=== PATIENT | female | born 1990 | race American Indian/Alaskan Native ===

== ENCOUNTER 2019-11-29 09:20 | Inpatient (IN) | payer OTHER ==
[2019-11-29 10:24] LABS: BASO % 0.4 % (0-2.0); EOS % 0.4 % (0-4.5); HEMATOCRIT 32.8 % (32.4-45.2); HEMOGLOBIN 11.1 GM/dL (10.7-15.3); LYMPH % 20.4 % (8-40); MCH 30.3 pg (25.7-33.7); MCHC 33.7 g/dl (32.0-36.0); MEAN CELL VOLUME 89.8 fl (80-96); MEAN PLT VOLUME 7.7 fl (7.5-11.1); MONO % 11.6 % (3.8-10.2); NEUT % 67.2 % (42.8-82.8); PLATELET COUNT 250 K/MM3 (134-434); RBC 3.66 M/mm3 (3.60-5.2); RDW 16.1 % (11.6-15.6); WHITE BLOOD COUNT 6.4 K/mm3 (4.0-10.0)
[2019-11-29 10:30] LABS: INR 0.91 (0.83-1.09); PROTHROMBIN TIME (PATIENT) 10.7 SEC (9.7-13.0)
[2019-11-29 10:32] LABS: ACTIVATED PTT 24.7 SECONDS (25.2-36.5)
[2019-11-29] MEDS ORDERED: DINOPROSTONE 10 MG VAGINAL SUPPOSITORY VG ONE (10:45)
[2019-11-29 10:49] LABS: BLOOD UREA NITROGEN 6.5 mg/dL (7-18); CALCIUM 9.2 mg/dL (8.5-10.1); CREATININE 0.4 mg/dL (0.55-1.3); POTASSIUM 3.8 mmol/L (3.5-5.1)
[2019-11-29] MEDS ORDERED: BUTORPHANOL TARTRATE 1 MG/ML VIAL IVPB ONE (10:59)
[2019-11-29] MEDS ORDERED: PROMETHAZINE HCL 25 MG/1 ML VIAL IVPB ONE ×2 (10:59→19:15)
[2019-11-29] MEDS ORDERED: DEXTROSE 5%-LACTATED RINGERS 1,000 ML IV SCH (11:00)
[2019-11-29] MEDS ORDERED: SODIUM PHOSPHATE/NA BIPHOS 133 ML ENEMA RC ONE (11:02)
--- NOTE | 2019-11-29 11:17 | HP ---
Past Medical History - Primary Care Physician PCP:: Claire Newton - Admission Chief Complaint: 28 yrs , 40.3/7 weeks iup, admitted for induction of labor History of Present Illness: pt late registrant at [facility] .care transferred from [place] 04/03/19 Panel :B Pos, hbsag neg, hep c nr, rubella immune, sickle neg, gc/ct neg , hiv neg h/h 10.07/10, Afp neg , 1 hr gtt 88 10/14/19 US : sliup. 33.6/7 wks, , Vx, normal AF, edc 11/26/19 h/o covid -Pos on 07/31/19, 6 weeks later covid neg 36 weeks cultures on 11/05/19 : h/h 9.6/28.6,plt 299, GBS neg, gc/ct neg , Hiv neg, quantiferon neg h/o 11/21/19 us done at [facility] History Source: Patient, Medical Record Limitations to Obtaining History: No Limitations - Past Medical History Cardiovascular: No: AFIB, HTN, Murmur Pulmonary: No: Asthma Gastrointestinal: No: Ascites, Cancer, Constipation, Crohn's Disease, Diverticulitis, Diverticulosis, Esophageal Varices, Gastritis, GERD, GI Bleed, Hemorrhoids, Hiatal Hernia, Inflamatory Bowel Disease, Irritable Bowel Disease, Pancreatitis, Peptic Ulcer Disease, Ulcerative Colitis, Other Hepatobiliary: No: Hepatitis B, Hepatitis C Renal/: No: UTI ...: 2 ...Para: 1 (03/12/20 6'3"in [place] ) ...LMP: 02/08/19 ... Weeks Gestation by Dates: 42 ...EDC by Dates: 11/15/19 ...EDC by Sono: 11/26/19 (09/16/19 us 29.6 wkks --edc 11/26/19, 40.3 wks by us ) Heme/Onc: Yes: Anemia (iron deff anemia rx po pnv & iron) Infectious Disease: Yes: Other (h/o covid pos on 07/31/19. 6 wks later neg. 11/26/19 covid test neg). No: AIDS, HIV, STD's Psych: No: Addictions, Anxiety, Bipolar, Depression, Panic, Psychosis, Schizophrenia, Other - Past Surgical History Past Surgical History: Yes: None Hx Myomectomy: No Hx Transabdominal Cerclage: No Home Medications - Allergies Allergies/Adverse Reactions: Allergies Allergy/AdvReac Type Severity Reaction Status Date / Time No Known Allergies Allergy Verified 11/29/19 10:57 Review of Systems - Review of Systems Constitutional: reports: No Symptoms Eyes: reports: No Symptoms HENT: reports: No Symptoms Neck: reports: No Symptoms Cardiovascular: reports: No Symptoms Gastrointestinal: reports: No Symptoms Genitourinary: reports: No Symptoms Breasts: reports: No Symptoms Reported Musculoskeletal: reports: No Symptoms Integumentary: reports: No Symptoms Neurological: reports: No Symptoms Endocrine: reports: No Symptoms Hematology/Lymphatic: reports: No Symptoms Psychiatric: reports: No Symptoms Physical Exam - Maternity Constitutional: Yes: Well Nourished Eyes: Yes: WNL HENT: Yes: WNL Neck: Yes: WNL Cardiovascular: Yes: WNL Lungs: Clear to auscultation Breast(s): Yes: WNL - Abdominal Exam/OB Fundal Height: 38 Number of Fetuses: Single Presentation: Vertex Contractions: No Heart Rate (range): 130 Heart Rate Location: [facility] Category: I Accelerations: Non-Uniform Decelerations: None - Vaginal Exam/OB Vaginal Bleeding: No Speculum Exam: No Dilatation (cm): close Effacement (%): unefface Presentation: Vertex/Position (exam at 10.45 AM) Station: -3 - Physical Exam Edema: LLE: 1+, RLE: 1+ Integumentary: Yes: WNL Deep Tendon Reflex Grade: Normal +2 ...Motor Strength: WNL Psychiatric: Yes: WNL, Alert, Oriented - Labs Lab Results: CBC, BMP 11/29/19 10:01 11/29/19 10:01 Laboratory Tests 11/26/19 11:20 COVID-19 (JOHN) Not detected Laboratory Tests 11/29/19 10:01 PT with INR 10.70 INR 0.91 PTT (Actin FS) 24.7 L Hemorrhage Risk Assessment - Risk Factors Risk Score: 0 Risk Level: Low Risk Problem List - Problems (1) Post term over 40 weeks Code(s): O48.0 - POST-TERM (2) Encounter for induction of labor Code(s): Z34.90 - ENCNTR FOR SUPRVSN OF NORMAL , UNSP, UNSP TRIMESTER Assessment/Plan 28 yrs , 40 .3 weeks, gbs neg , is admitted for induction of labor 10.45 AM Cervidil inserted Plan trial vaginal delivery
[2019-11-29 15:21] VITALS: BMI 24.1
--- NOTE | 2019-11-29 17:35 | PN ---
Progress Note (short form) - Note Progress Note: pt c/o uc .q 1-2-3 min . pt feels fhr 130-140 reactive pelvic ex; cx 2cm/post/soft/50%/Mi vx -[address] cervidil. stadol + phenrgan PRN Selected Entries 11/29/19 15:30 Temperature 98.3 F Pulse Rate 78 Blood Pressure 108/65 Problem List - Problems (1) Post term over 40 weeks Code(s): O48.0 - POST-TERM (2) Encounter for induction of labor Code(s): Z34.90 - ENCNTR FOR SUPRVSN OF NORMAL , UNSP, UNSP TRIMESTER
--- OUTSIDE RECORDS SUMMARY | 2019-11-29 18:45 | XMS ---
:1990 Author Organization [facility] Support Name Relationship Address Phone UE, UNEMPLOYED Unavailable Unavailable Unavailable UE Unavailable Unavailable Unavailable SHEREEN SAENZ AUNT [address] [place] [address] Re-disclosure Warning The records that you are about to access may contain information from federally- assisted alcohol or drug abuse programs. If such information is present, then the following federally mandated warning applies: This information has been disclosed to you from records protected by federal confidentiality rules (42 CFR part 2). The federal rules prohibit you from making any further disclosure of this information unless further disclosure is expressly permitted by the written consent of the person to whom it pertains or as otherwise permitted by 42 CFR part 2. A general authorization for the release of medical or other information is NOT sufficient for this purpose. The Federal rules restrict any use of the information to criminally investigate or prosecute any alcohol or drug abuse patient.The records that you are about to access may contain highly sensitive health information, the redisclosure of which is protected by Article 27-F of the [facility] Public Health law. If you continue you may haveaccess to information: Regarding HIV / AIDS; Provided by facilities licensed or operated by the [facility] Office of Mental Health; or Provided by the [facility] Office for People With Developmental Disabilities. If such information is present, then the following [facility] mandated warning applies: This information has been disclosed to you from confidential records which are protected by state law. State law prohibits you from making any further disclosure of this information without the specific written consent of the person to whom it pertains, or as otherwise permitted by law. Any unauthorized further disclosure in violation of state law may result in a fine or detention sentence or both. A general authorization for the release of medical or other information is NOT sufficient authorization for further disclosure. Insurance Providers Payer name Policy type Policy ID Covered Covered green party's Policy P bennett / Coverage green party ID relationship to Know[employer] Inf ormation type knowles [employer] [id number] SP [id number] Results ID Date Data Source [id number] 11/26/2019 11:20:00 AM EDT [facility] Name Value Range Interpretation Description Data Sup porting Code Source(s) Document(s ) SARS [facility] coronavirus 2 RNA This lab was ordered by [facility] and reported by [facility]. ID Date Data Source [id number] 03/12/1799 11:59:58 PM -04:56:02 [facility] Name Value Range Interpretation Code Description Data Ivanna rce(s) Supporting Document(s ) SARS-COV-2 [facility]P [facility]ostics QL JOHN+PROBE This lab was ordered by [facility] and reported by [facility]. Procedure
[2019-11-29] MEDS ORDERED: BUTORPHANOL TARTRATE 2 MG/ML VIAL IVPB ONE (19:15)
[2019-11-29] MEDS ORDERED: BUTORPHANOL TARTRATE 2 MG/ML VIAL ONE (19:16)
[2019-11-29] MEDS ORDERED: PROMETHAZINE HCL 25 MG/1 ML VIAL ONE (19:16)
--- NOTE | 2019-11-29 20:27 | PN ---
Progress Note (short form) - Note Progress Note: 6.30 PM pt c/o pain , requesting pain meds o/e pelvic 3cm/60 %soft , midpose vx-3 UC 1-2-3 min, FHR 130 cat-1 plan : [id number] + phenrgan 25 mg iv stat at 7.25 PM given. 8.15 PM cx 7cm/90%/mi vx -1 uc 1-2 min, fhr 130, sometimes ? variable small decel noted , cat-1 pt drowsy , uncomfortable during uc Selected Entries 11/29/19 11/29/19 18:00 19:00 Temperature 98.1 F Pulse Rate 83 80 Blood Pressure 114/63 Blood Pressure 90 Mean 9.45 PM SROM, light meconium cervidil expelled cx 8-9 cm /100%/vx 0station . FHR 90-120 variable decel, cat-2 UC 2 min 10.00PM cx 10/100/+1/+2 . fhr 90-110 cat-2 , uc 2 min pt pushing Selected Entries 11/29/19 20:00 Pulse Rate 68 Blood Pressure 120/77 Problem List - Problems (1) Post term over 40 weeks Code(s): O48.0 - POST-TERM (2) Encounter for induction of labor Code(s): Z34.90 - ENCNTR FOR SUPRVSN OF NORMAL , UNSP, UNSP TRIMESTER
[2019-11-29] MEDS ORDERED: OXYTOCIN 20 UNITS in 0.9% NS 20 UNIT/1,000 ML INFUS.BAG IV ONE ×2 (20:32→23:31)
[2019-11-29] MEDS ORDERED: LIDOCAINE HCL 1% PRESERVATIVE FREE - 30ML VIAL ONE (22:08)
[2019-11-29] MEDS ORDERED: WITCH HAZEL 50% (TUCKS) 40 PAD/JAR PAD TP PRN (23:16)
[2019-11-29] MEDS ORDERED: BENZOCAINE 28 GM HEMORRHOIDAL OINTMENT TP PRN (23:16)
[2019-11-29] MEDS ORDERED: METHYLERGONOVINE MALEATE 0.2 MG/1 ML AMP IM PRN (23:16)
[2019-11-29] MEDS ORDERED: BENZOCAINE 20% 57 GM BOTTLE TP PRN (23:16)
[2019-11-29] MEDS ORDERED: BISACODYL 10 MG SUPP.RECT RC PRN (23:16)
[2019-11-29] MEDS ORDERED: IBUPROFEN 600 MG TABLET (FP) PO ONE (23:28)
[2019-11-29] MEDS ORDERED: ACETAMINOPHEN 325 MG TABLET (FP) ONE (23:28)
[2019-11-29] MEDS ORDERED: OXYTOCIN 20 UNITS in 0.9% NS 20 UNIT/1,000 ML INFUS.BAG IV SCH (23:30)
[2019-11-29] MEDS: IBUPROFEN 600 MG TABLET (FP) PO PRN (23:30)
[2019-11-29] MEDS: ACETAMINOPHEN 325 MG TABLET (FP) PO PRN (23:30)
--- NOTE | 2019-11-29 23:31 | PN ---
Delivery - Delivery Vaginal Delivery: No Problems, Spontaneous (pt delievered, vx presentation, gene position, cord around neckx1 , untangled before delivery of shoulder, oral & nasal suction done at perineum . trivascular cord, cord segment cut for cord gas , cord blood collected. Median episiotomy sutured inlayers with chr catgut #2/0 under local anesthesia.bladder catheterized , emptied 250 ml urine. [place] ex : mucosa & sphincter intact) Type of Anesthesia: Local Episiotomy/Laceration: Midline EBL (cc): 400 Delivery, Single - Stages of Labor Date 1st Stage Initiatied: 11/29/19 Time 1st Stage Initiated: 17:00 Date 2nd Stage Initiated: 11/29/19 Time 2nd Stage Initiated: 22:00 Date of Delivery: 11/29/19 Time of Delivery: 22:26 Date Placenta Delivered: 11/29/19 Time Placenta Delivered: 22:28 Placenta: Yes: Spontaneous, Uterine Exploration - Condition of Infant Gender: Female Weight: 8 lb 6 oz Position: Left (cord around neckx1), OA Total Hours ROM (Hrs/Mins): 43 min - 1 Minute Total Score: 9 5 Minutes Total Score: 9 - [place] Feeding Plan Initial Plan: Exclusive throughout hospitalization Remarks - Remarks Remarks: 28 yrs , gbs neg , 40.3 weeks admitted for induction of labor pnc at [address] [place] [address] cervidil insertion intrapartum stadol+ phenrgan labor analgesia given one dose intrapartum course uneventful
[2019-11-29 23:45] LABS: CORD BASE EXCESS -11.9 mmol/L (0-2); CORD HCO3 17.8 mmHg (20-29); CORD PCO2 54.6 mmHg (30-78); CORD pH 7.13 (7.14-7.44)
[2019-11-29 23:46] LABS: CORD BASE EXCESS -10.1 mmol/L (0-2); CORD HCO3 16.9 mmHg (20-29); CORD PCO2 41.4 mmHg (30-78); CORD pH 7.23 (7.14-7.44)
--- NOTE | 2019-11-30 08:47 | PN ---
Post Progress Note - Subjective Subjective: c/o bleeding moderate cramps Post Day: 1 Type of Delivery: Vital Signs: Vital Signs Temperature 98.1 F 11/30/19 06:00 Pulse Rate 77 11/30/19 06:00 Respiratory Rate 20 11/30/19 06:00 Blood Pressure 99/55 L 11/30/19 06:00 O2 Sat by Pulse Oximetry (%) 100 11/29/19 23:45 Breast Exam: Yes: Soft, Other (attempts tp brast feed ). No: Engorged Uterus: Yes: Fundus Firm, Fundus below umbilicus, Non-tender Abdomen/GI: Yes: Abdomen soft Lochia, amount: Moderate Extremities: Yes: Calves non-tender Perineum: Yes: Episiotomy (no c/o perineal soreness ) Activity: Ambulating - Labs Labs: CBC WBC 6.4 K/mm3 (4.0-10.0) 11/29/19 10:01 RBC 3.66 M/mm3 (3.60-5.2) 11/29/19 10:01 Hgb 11.1 GM/dL (10.7-15.3) 11/29/19 10:01 Hct 32.8 % (32.4-45.2) 11/29/19 10:01 MCV 89.8 fl (80-96) 11/29/19 10:01 MCH 30.3 pg (25.7-33.7) 11/29/19 10:01 MCHC 33.7 g/dl (32.0-36.0) 11/29/19 10:01 RDW 16.1 % (11.6-15.6) H 11/29/19 10:01 Plt Count 250 K/MM3 (134-434) 11/29/19 10:01 MPV 7.7 fl (7.5-11.1) 11/29/19 10:01 Absolute Neuts (auto) 4.3 K/mm3 (1.5-8.0) 11/29/19 10:01 Neutrophils % 67.2 % (42.8-82.8) 11/29/19 10:01 Lymphocytes % 20.4 % (8-40) 11/29/19 10:01 Monocytes % 11.6 % (3.8-10.2) H 11/29/19 10:01 Eosinophils % 0.4 % (0-4.5) 11/29/19 10:01 Basophils % 0.4 % (0-2.0) 11/29/19 10:01 Nucleated RBC % 0 % (0-0) 11/29/19 10:01 Problem List - Problems (1) Post term over 40 weeks Code(s): O48.0 - POST-TERM (2) Encounter for induction of labor Code(s): Z34.90 - ENCNTR FOR SUPRVSN OF NORMAL , UNSP, UNSP TRIMESTER (3) Normal vaginal delivery Code(s): O80 - ENCOUNTER FOR FULL-TERM UNCOMPLICATED DELIVERY Assessment/Plan stable plan ct pp care
[2019-11-30] MEDS: FERROUS SO4 325 MG TABLET (FP) PO SCH ×2 (09:00→17:27)
[2019-11-30 09:24] LABS: BASO % 0.1 % (0-2.0); HEMATOCRIT 27.8 % (32.4-45.2); HEMOGLOBIN 9.2 GM/dL (10.7-15.3); LYMPH % 13.1 % (8-40); MCH 29.4 pg (25.7-33.7); MCHC 33.2 g/dl (32.0-36.0); MEAN CELL VOLUME 88.5 fl (80-96); MEAN PLT VOLUME 7.5 fl (7.5-11.1); MONO % 5.1 % (3.8-10.2); NEUT % 81.7 % (42.8-82.8); PLATELET COUNT 248 K/MM3 (134-434); RBC 3.14 M/mm3 (3.60-5.2); RDW 16.2 % (11.6-15.6); WHITE BLOOD COUNT 12.5 K/mm3 (4.0-10.0)
[2019-11-30] MEDS: IBUPROFEN 600 MG TABLET (FP) PO PRN ×2 (09:42→22:22)
[2019-11-30] MEDS: PRENATAL VITAMINS W/ FOLIC ACID TABLET (FP) PO SCH (09:46)
[2019-11-30] MEDS: ACETAMINOPHEN 325 MG TABLET (FP) PO PRN ×2 (09:47→22:22)
[2019-11-30] MEDS ORDERED: SENNOSIDES/DOCUSATE COMBO (SENNA PLUS) TABLET (UD) PO PRN (22:00)
[2019-12-01] MEDS: FERROUS SO4 325 MG TABLET (FP) PO SCH (09:31)
[2019-12-01] MEDS: IBUPROFEN 600 MG TABLET (FP) PO PRN (09:31)
[2019-12-01] MEDS: PRENATAL VITAMINS W/ FOLIC ACID TABLET (FP) PO SCH (09:31)
[2019-12-01] MEDS: ACETAMINOPHEN 325 MG TABLET (FP) PO PRN (09:32)
[2019-12-01 12:09] VITALS: BP 107/70; PULSE 89; TEMP 98.9
--- NOTE | 2019-12-01 12:55 | DS ---
Physical Exam-ACID CUTTER Vital Signs: Vital Signs Temperature 98.9 F 12/01/19 10:00 Pulse Rate 89 12/01/19 10:00 Respiratory Rate 20 12/01/19 10:00 Blood Pressure 107/70 12/01/19 10:00 O2 Sat by Pulse Oximetry (%) 100 11/29/19 23:45 Constitutional: Yes: Well Nourished Eyes: Yes: WNL HENT: Yes: WNL Neck: Yes: WNL Cardiovascular: Yes: WNL Respiratory: Yes: WNL Gastrointestinal: Yes: WNL ...Rectal Exam: Yes: WNL, Hemorrhoids/External Renal/: Yes: WNL, Other (voiding) ....Post : Yes: Uterus firm, Uterus non-tender, Moderate lochia rubra (episiotomy wound well cleaned , sutures intact. perineal soreness diminshed) Musculoskeletal: Yes: WNL Extremities: Yes: WNL. No: Calf Tenderness Edema: LLE: 1+, RLE: 1+ Integumentary: Yes: WNL Neurological: Yes: WNL, Alert, Oriented ...Motor Strength: WNL Psychiatric: Yes: WNL, Alert, Oriented Labs: CBC, BMP 11/30/19 09:05 11/29/19 10:01 Delivery - Delivery Vaginal Delivery: No Problems, Spontaneous (pt delievered, vx presentation, gene position, cord around neckx1 , untangled before delivery of shoulder, oral & nasal suction done at perineum . trivascular cord, cord segment cut for cord gas , cord blood collected. Median episiotomy sutured inlayers with chr catgut #2/0 under local anesthesia.bladder catheterized , emptied 250 ml urine. [place] ex : mucosa & sphincter intact) Type of Anesthesia: Local Episiotomy/Laceration: Midline EBL (cc): 400 Delivery, Single - Stages of Labor Date 1st Stage Initiatied: 11/29/19 Time 1st Stage Initiated: 17:00 Date 2nd Stage Initiated: 11/29/19 Time 2nd Stage Initiated: 22:00 Date of Delivery: 11/29/19 Time of Delivery: 22:26 Time Placenta Delivered: 22:28 Placenta: Yes: Spontaneous, Uterine Exploration - Condition of Infant Rehab Office Coordinator/Coke Loader Present: No Gender: Female Weight: 8 lb 6 oz Position: Left (cord around neckx1), OA Total Hours ROM (Hrs/Mins): 43 min - 1 Minute Total Score: 9 5 Minutes Total Score: 9 - [place] Feeding Plan Initial Plan: Exclusive throughout hospitalization Remarks - Remarks Remarks: 28 yrs , gbs neg , 40.3 weeks admitted for induction of labor pnc at [address] [place] [address] cervidil insertion intrapartum stadol+ phenrgan labor analgesia given one dose intrapartum course uneventful . pp course uneventful. pericare explained. anemia counselled Discharge Summary Problems reviewed: Yes Reason For Visit: INDUCTION OF LABOR Condition: Stable - Instructions Diet, Activity, Other Instructions: Post Instructions DIET: Continue good diet high in protein, calcium, and iron rich foods. Drink at least eight (8) glasses of water daily in addition to other fluids. ct Regular diet MEDICATIONS: Continue vitamins and iron as previously directed. Motrin and Tylenol may be taken for minor discomfort. ACTIVITY: Mild to moderate exercise may be started in two (2) weeks. Take frequent rest periods. Resume normal activity after six (6) week check up. WOUND CARE OF OPERATIVE SITE: Continue use of perineal bottle until vaginal discharge stops. Keep area clean. Shower daily. Keep abdominal wound dry. Report any drainage or redness to physician. Tub baths, tampons and douches are not permitted for 6 weeks.. SITZ BATH TID PRN ct Breast feeding & or Bottle feeding BREAST CARE: (For those that are not breastf eeding): If engorgement occurs: Wear tight fitting bra. Take Tylenol or Motrin for pain. Apply cold packs (ice in bags to each breast ) FAMILY PLANNING: There are many control alternatives to pursue and they should be discussed at your first office visit. You may resume sexual activity after your six (6) week check up. (Remember, breastf eeding is not a contraceptive) NEXT PHYSICIAN APPOINTMENT: Be certain to call for a three (3) week appointment, unless otherwise directed. Call Clinic or got to Emergency Dept if you have any of the following: Heavy vaginal bleeding Painful urination Leg pain Unusual odor noted to vaginal bleeding High fever Red streaking noted on breast Post Instructions DIET: Continue good diet high in protein, calcium, and iron rich foods. Drink at least eight (8) glasses of water daily in addition to other fluids. ___ Regular diet _ MEDICATIONS: Continue vitamins and iron as previously directed. Motrin and Tylenol may be taken for minor discomfort. ACTIVITY: Mild to moderate exercise may be started in two (2) weeks. Take frequent rest periods. Resume normal activity after six (6) week check up. WOUND CARE OF OPERATIVE SITE: Continue use of perineal bottle until vaginal discharge stops. Keep area clean. Shower daily. Keep abdominal wound dry. Report any drainage or redness to physician. Tub baths, tampons and douches are not permitted for [address] Breast feeding & or Bottle feeding BREAST CARE: (For those that are not breast feeding): If engorgement occurs: Wear tight fitting bra. Take Tylenol or Motrin for pain. Apply cold packs (ice in bags to each breast ) FAMILY PLANNING: There are many control alternatives to pursue and they should be discussed at your first office visit. You may resume sexual activity after your six (6) week check up. (Remember, breast feeding is not a contraceptive) NEXT PHYSICIAN APPOINTMENT: Be certain to call for a three (3 ) week appointment, unless otherwise directed. Call Clinic or got to Emergency Dept if you have any of the following: Heavy vaginal bleeding Painful urination Leg pain Unusual odor noted to vaginal bleeding High fever Red streaking noted on breast Referrals: Claire Newton MD [Staff Physician] - Disposition: HOME - Home Medications Comprehensive Discharge Medication List: Ambulatory Orders Ferrous Sulfate [Iron] 325 mg PO BID 11/29/19 Vitamins (Sjr) - 1 tab PO BID 11/29/19 Acetaminophen [Tylenol .Regular Strength -] 650 mg PO Q3H PRN tablet 11/30/19 Benzocaine Ointment [Americaine Ointment -] 1 applic TP PRN PRN tube 11/30/19 Benzocaine [Americaine 20% Waterflow -] 1 spray TP PRN PRN bottle 11/30/19 Ferrous Sulfate [Feosol] 325 mg PO BIDWM #60 tab 11/30/19 Ibuprofen [Motrin -] 600 mg PO Q4H PRN #20 tablet 11/30/19 Miscellaneous Medical Supply [Breast Pump, Electronic] 1 each NR ASDIR #1 unit 11/30/19 Vitamins (Sjr) - 1 tab PO DAILY #30 tablet 11/30/19 Sennosides/Docusate Sodium [Pericolace -] 2 tablet PO HS PRN #30 tablet 11/30/19
== END 2019-12-01 11:15 | disposition home or self-care (01) | DRG 560 ==
LOC: JLDR 09:20 → J3W 11-30 13:15
PROVIDERS: ADMIT Obstetrics & Gynecology; ATTEND Obstetrics & Gynecology
PROC: 3E0P7VZ Introduction of Hormone into Female Reproductive, Via Natural or Artificial Opening (ICD-10-PCS; principal; 2019-11-29)
PROC: 10E0XZZ Delivery of Products of Conception, External Approach (ICD-10-PCS; 2019-11-29)
PROC: 0W8NXZZ Division of Female Perineum, External Approach (ICD-10-PCS; 2019-11-29)
DX: O48.0 Post-term pregnancy (principal); O42.02 Full-term premature rupture of membranes, onset of labor within 24 hours of rupture; O69.81X0 Labor and delivery complicated by cord around neck, without compression, not applicable or unspecified; O77.0 Labor and delivery complicated by meconium in amniotic fluid; O99.03 Anemia complicating the puerperium; D50.9 Iron deficiency anemia, unspecified; Z86.19 Personal history of other infectious and parasitic diseases; Z3A.40 40 weeks gestation of pregnancy; Z37.0 Single live birth
CPT/HCPCS: 36415; 36600; 59409; 80048; 82803; 85025; 85610; 85730; 86707; 86762; 86780; 86850; 86900; 86901; 87350

== ENCOUNTER 2023-08-22 09:21 | Inpatient (IN) | payer OTHER ==
[2023-08-22] MEDS: ELECTROLYTE-148 SOLN 1,000 ML IV SCH (10:00)
[2023-08-22 10:21] VITALS: BMI 25.0
[2023-08-22 10:25] LABS: BASO % 0.3 % (0-2.0); EOS % 0.9 % (0-4.5); HEMATOCRIT 34.9 % (32.4-45.2); HEMOGLOBIN 11.8 GM/dL (10.7-15.3); LYMPH % 20.1 % (8-40); MCH 29.4 pg (25.7-33.7); MCHC 33.8 g/dl (32.0-36.0); MEAN CELL VOLUME 86.9 fl (80-96); MEAN PLT VOLUME 7.8 fl (7.5-11.1); MONO % 9.4 % (3.8-10.2); NEUT % 69.3 % (42.8-82.8); PLATELET COUNT 296 10^3/uL (134-434); RBC 4.02 M/mm3 (3.60-5.2); RDW 15.3 % (11.6-15.6); WHITE BLOOD COUNT 8.3 K/mm3 (4.0-10.0)
[2023-08-22 10:37] LABS: INR 0.93 (0.83-1.09); PROTHROMBIN TIME (PATIENT) 10.5 SEC (9.7-13.0)
[2023-08-22 10:40] LABS: ACTIVATED PTT 25.5 SECONDS (25.2-36.5)
[2023-08-22 11:20] LABS: POTASSIUM 3.9 mmol/L (3.5-5.1)
[2023-08-22 11:21] LABS: CALCIUM 8.6 mg/dL (8.5-10.1)
[2023-08-22 11:23] LABS: BLOOD UREA NITROGEN 6.8 mg/dL (7-18)
[2023-08-22 11:25] LABS: CREATININE 0.5 mg/dL (0.55-1.3)
[2023-08-22] MEDS ORDERED: OXYTOCIN 30 UNITS in 0.9% NS 30 UNIT/500 ML INFUS.BAG IVPB ONE (16:24)
[2023-08-22] MEDS ORDERED: OXYTOCIN 20 UNITS in 0.9% NS 20 UNIT/1,000 ML INFUS.BAG IV ONE (16:45)
[2023-08-22] MEDS: OXYTOCIN 20 UNITS in 0.9% NS 20 UNIT/1,000 ML INFUS.BAG IV SCH (17:30)
[2023-08-22] MEDS ORDERED: ACETAMINOPHEN 325 MG TABLET (FP) PO PRN (17:40)
[2023-08-22] MEDS ORDERED: WITCH HAZEL 50% (TUCKS) 40 PAD/JAR PAD TP PRN (17:40)
[2023-08-22] MEDS ORDERED: BISACODYL 10 MG SUPP.RECT RC PRN (17:40)
[2023-08-22] MEDS ORDERED: METHYLERGONOVINE MALEATE 0.2 MG/1 ML AMP IM PRN (17:40)
[2023-08-22] MEDS ORDERED: BENZOCAINE 20% 57 GM BOTTLE TP PRN (17:40)
[2023-08-22] MEDS ORDERED: BENZOCAINE 28 GM HEMORRHOIDAL OINTMENT TP PRN (17:40)
[2023-08-22] MEDS ORDERED: oxyCODONE HCL 5 MG TABLET PO PRN (17:40)
[2023-08-22] MEDS: OXYTOCIN 30 UNITS in 0.9% NS 30 UNIT/500 ML INFUS.BAG IVPB SCH (18:04)
[2023-08-22] MEDS ORDERED: IBUPROFEN 600 MG TABLET (FP) PO ONE (18:10)
[2023-08-22] MEDS: IBUPROFEN 600 MG TABLET (FP) PO PRN (18:15)
[2023-08-22] MEDS ORDERED: MISOPROSTOL 200 MCG TABLET ONE (19:06)
[2023-08-22] MEDS: MISOPROSTOL 200 MCG TABLET NR ONE (19:10)
[2023-08-22] MEDS: DIPHENOXYLATE 2.5/ATROPINE.025 1 COMBO TABLET PO PRN (22:00)
[2023-08-23 06:57] LABS: BASO % 0.4 % (0-2.0); EOS % 0.7 % (0-4.5); HEMATOCRIT 29.4 % (32.4-45.2); HEMOGLOBIN 10.1 GM/dL (10.7-15.3); LYMPH % 18.4 % (8-40); MCH 30.2 pg (25.7-33.7); MCHC 34.6 g/dl (32.0-36.0); MEAN CELL VOLUME 87.4 fl (80-96); MEAN PLT VOLUME 7.4 fl (7.5-11.1); MONO % 7.9 % (3.8-10.2); NEUT % 72.6 % (42.8-82.8); PLATELET COUNT 227 10^3/uL (134-434); RBC 3.36 M/mm3 (3.60-5.2); WHITE BLOOD COUNT 10.3 K/mm3 (4.0-10.0)
[2023-08-23] MEDS ORDERED: SENNOSIDES/DOCUSATE COMBO (SENNA PLUS) TABLET (UD) PO PRN (22:00)
[2023-08-24 09:35] VITALS: BP 98/66; PULSE 90; RESP 12; TEMP 97.7
== END 2023-08-24 11:50 | disposition home or self-care (01) | DRG 807 ==
LOC: JLDR 09:21 → J3W 20:28
PROVIDERS: ADMIT Obstetrics & Gynecology Obstetrics; ATTEND Obstetrics & Gynecology Obstetrics
PROC: 0KQM0ZZ Repair Perineum Muscle, Open Approach (ICD-10-PCS; principal; 2023-08-22)
PROC: 10E0XZZ Delivery of Products of Conception, External Approach (ICD-10-PCS; 2023-08-22)
DX: O70.1 Second degree perineal laceration during delivery (principal); Z37.0 Single live birth; Z3A.39 39 weeks gestation of pregnancy
CPT/HCPCS: 36415; 59409; 80048; 85025; 85610; 85730; 86780; 86850; 86900; 86901